=== PATIENT | male | born 1970 | race African-American/Black ===

== ENCOUNTER 2017-05-21 15:49 | Emergency (ER) | payer BC, OTHER ==
[~2017-05-21] VITALS: Ht 175.3 cm; Wt 120.0 kg
[~2017-05-21 15:49] MED LIST: ERGO50000 PO; FEXO180 OR; IBUP600 PO; METO25 PO; OXYC5 PO; SERT-132 PO; SIMV80TA PO; SULF1TAB47 PO; VITA-13 PO; ZIPR1CAP27 PO
[2017-05-21 15:51] VITALS: BP 124/72; PULSE 75; RESP 17; TEMP 98.3; O2SAT 95
--- NOTE | 2017-05-21 15:56 | PD ---
Physical Exam Time Seen by Provider: 15:54 Narrative 47-year-old male presents with complaint of constant left-sided chest pain that worsens with breathing since this morning. Denies shortness of breath. Reports her palpitations. Takes aspirin daily. Denies history of MA. Patient seen in triage. Vital signs reviewed. Patient awaiting bed placement. Data Data Last Documented VS Vital Signs Date Time Temp Pulse Resp B/P (MAP) Pulse Ox O2 Delivery O2 Flow Rate FiO2 05/21/17 15:51 98.3 75 17 124/72 (89) 95 Room Air MDM Supervised Visit with SUZY: Kirsty Deshpande May 21, 2017 15:55
[2017-05-21] MEDS ORDERED: SODIUM CHLORIDE 0.9% FLUSH 10 ML FLUSH IVF PRN (16:00)
[2017-05-21 16:14] VITALS: BP 129/80; PULSE 82; RESP 18; O2SAT 96
--- NOTE | 2017-05-21 16:29 | RADRPT ---
EXAM DATE/TIME: 05/21/2017 16:02 [facility] COMPARISON: No previous studies available for comparison. INDICATIONS : Chest pain MEDICAL HISTORY : Cardiovascular disease. SURGICAL HISTORY : None. ENCOUNTER: Initial ACUITY: 1 day PAIN SCORE: 6/10 LOCATION: chest FINDINGS: A single view of the chest demonstrates the lungs to be symmetrically aerated without evidence of mas s, infiltrate or effusion. The cardiomediastinal contours are unremarkable. Osseous structures are intact. CONCLUSION: 1. No acute cardiopulmonary findings. Sukhdeep Pugh MD on May 21, 2017 at 16:21 Board Certified Radiologist. This report was verified electronically.
[2017-05-21] MEDS ORDERED: ASPIRIN 81 MG CHEW TAB CHEW ONE (16:30)
[2017-05-21] MEDS ORDERED: ASPI81TA81 PO (16:34)
[2017-05-21] MEDS ORDERED: MELAPOW2 PO (16:34)
[2017-05-21] MEDS ORDERED: ZOCO80TA PO (16:34)
[2017-05-21] MEDS ORDERED: METF500T PO (16:34)
[2017-05-21] MEDS ORDERED: ZIPR1CAP12 PO (16:34)
[2017-05-21] MEDS ORDERED: MIRT30TA PO (16:34)
[2017-05-21] MEDS ORDERED: METO50TA PO (16:34)
[2017-05-21] MEDS ORDERED: HALO5TAB PO (16:34)
[2017-05-21] MEDS ORDERED: VITA100T65 PO (16:34)
[2017-05-21 17:03] LABS: BASOPHIL # 0.1 TH/MM3 (0-0.2); BASOPHIL % 0.6 % (0.0-2.0); EOSINOPHIL # 0.1 TH/MM3 (0-0.4); EOSINOPHIL % 0.8 % (0.0-4.0); HEMATOCRIT 45.7 % (39.0-51.0); HEMO FLAGS DIFF FINAL; LYMPH % 13.7 % (9.0-44.0); LYMPHOCYTE # 1.8 TH/MM3 (1.0-4.8); MEAN CELL VOLUME 88.2 FL (80.0-100.0); MEAN CORPUSCULAR HEMOGLOBIN 29.9 PG (27.0-34.0); MONO % 9.4 % (0.0-8.0); NEUT % 75.5 % (16.0-70.0); PLATELET COUNT 351 TH/MM3 (150-450); RED BLOOD COUNT 5.18 MIL/MM3 (4.50-5.90); RED CELL DISTRIBUTION WIDTH 13.7 % (11.6-17.2); WHITE BLOOD COUNT 13.3 TH/MM3 (4.0-11.0)
[2017-05-21 17:23] LABS: APTT (PATIENT) 23.3 SEC (24.3-30.1); BLOOD UREA NITROGEN 11 MG/DL (7-18); CHLORIDE 106 MEQ/L (98-107); CREATINE KINASE 101 U/L (39-308); GLOMERULAR FILTRATION RATE 88 ML/MIN (>89); MAGNESIUM 2.2 MG/DL (1.5-2.5); PROTHROMBIN TIME - PATIENT 11.1 SEC (9.8-11.6); SODIUM (NA) 138 MEQ/L (136-145)
[2017-05-21 17:24] LABS: ANION GAP 6 MEQ/L (5-15); BICARBONATE 25.6 MEQ/L (21.0-32.0); POTASSIUM 4.2 MEQ/L (3.5-5.1)
[2017-05-21 17:36] LABS: CKMB LESS THAN 0.5 NG/ML (0.5-3.6)
[2017-05-21 18:09] VITALS: BP 132/82; PULSE 76; RESP 18; O2SAT 95
--- NOTE | 2017-05-21 18:33 | PD ---
HPI Chief Complaint: Cardiac Complaint Time Seen by Provider: 16:02 Travel History International Travel<30 days: No Contact w/Intl Traveler<30days: No Traveled to known affect area: No History of Present Illness HPI 47-year-old male came to the emergency room with history of left-sided chest pain radiating across his entire chest on and off since 8 AM. Pain is pleuritic in nature. Patient has had multiple times pain in the past. He has had cardiac workup few years ago. No history of shortness of breath. No history of dizziness or syncopal episode. No history of diaphoresis. Vital signs are stable. The pain did not go away and hence he decided to come in and be checked. No recent long distance travel or procedures. Other has history of DVT when she was much younger. Vital signs are stable. [facility] Past Medical History Narrative Medical List of his past medical, surgical, social and family history is reviewed from the nursing note. Cardiovascular Problems: Yes High Cholesterol: Yes Hypertension: Yes ( ) Psychiatric: Yes (HISTORY OF PSYCHOSIS IN 2006. ADMITTED TO [facility]) Sleep Apnea: Yes (WEARS CPAP) Tetanus Vaccination: < 5 Years Past Surgical History Abdominal Surgery: Yes (SPLENECTOMY AGE 5- BOWEL OBSTRUCTION) Other Surgery: Yes (RECTAL CA SURGERY) Social History Alcohol Use: No Tobacco Use: No Substance Use: No Allergies-Medications (Allergen,Severity, Reaction): Coded Allergies: house dust (Unverified Allergy, Severe, 03/24/17) droperidol (Unverified Allergy, Mild, SKIN CRAWLING, 03/24/17) Comments List of his allergies reviewed from the nursing note. Reported Meds & Prescriptions Reported Meds & Active Scripts Active Reported Metformin (Metformin HCl) 500 Mg Tab 500 Mg PO BIDPC Aspir-81 (Aspirin) 81 Mg Tabdr 81 Mg PO DAILY Zocor (Simvastatin) 80 Mg Tab 80 Mg PO DAILY Vitamin E 100 Unit Tab 1,000 Units PO DAILY Ziprasidone 80 Mg Cap 80 Mg PO BID Haloperidol 5 Mg Tab 5 Mg PO Q8HR Mirtazapine 30 Mg Tab 30 Mg PO HS Metoprolol Tartrate 50 Mg Tab 50 Mg PO BID Melatonin (Melatonin (Bulk)) 100 % Pow 5 Mg PO DAILY Narrative Medication List of his home medications reviewed from the nursing note. Review of Systems Except as stated in HPI: all other systems reviewed are Neg Cardiovascular: Positive: Chest Pain or Discomfort Physical Exam Narrative GENERAL: Awake, alert, obese, moderate distress SKIN: Focused skin assessment warm/dry. HEAD: Atraumatic. Normocephalic. EYES: Pupils equal and round. No scleral icterus. No injection or drainage. ENT: No nasal bleeding or discharge. Mucous membranes pink and moist. NECK: Trachea midline. No JVD. CARDIOVASCULAR: Regular rate and rhythm. No murmur appreciated. RESPIRATORY: No accessory muscle use. Clear to auscultation. Breath sounds equal bilaterally. GASTROINTESTINAL: Abdomen soft, non-tender, nondistended. Hepatic and splenic margins not palpable. MUSCULOSKELETAL: No obvious deformities. No clubbing. No cyanosis. No edema. NEUROLOGICAL: Awake and alert. No obvious cranial nerve deficits. Motor grossly within normal limits. Normal speech. PSYCHIATRIC: Appropriate mood and affect; insight and judgment normal. Data Data Last Documented VS Vital Signs Date Time Temp Pulse Resp B/P (MAP) Pulse Ox O2 Delivery O2 Flow Rate FiO2 05/21/17 21:49 05/21/17 19:35 83 16 98 Room Air 05/21/17 15:51 98.3 Orders Orders Electrocardiogram (05/21/17 15:56) Basic Metabolic Panel (Bmp) (05/21/17 15:56) Ckmb (Isoenzyme) Profile (05/21/17 15:56) Complete Blood Count With Diff (05/21/17 15:56) Magnesium (Mg) (05/21/17 15:56) Prothrombin Time / Inr (Pt) (05/21/17 15:56) Act Partial Throm Time (Ptt) (05/21/17 15:56) Troponin I (05/21/17 15:56) Chest, Single Ap (05/21/17 15:56) Ecg Monitoring (05/21/17 15:56) Iv Access Insert/Monitor (05/21/17 15:56) Oximetry (05/21/17 15:56) Oxygen Administration (05/21/17 15:56) Sodium Chloride 0.9% Flush (Ns Flush) (05/21/17 16:00) Aspirin Chew (Aspirin Chew) (05/21/17 16:30) CKMB (05/21/17 16:47) CKMB% (05/21/17 16:47) D-Dimer (05/21/17 17:50) Ct Pulmonary Angiogram (05/21/17 ) Iohexol 350 Inj (Omnipaque 350 Inj) (05/21/17 20:28) Ed Discharge Order (05/21/17 21:42) Labs Laboratory Tests Test 05/21/17 16:47 White Blood Count 13.3 TH/MM3 Red Blood Count 5.18 MIL/MM3 Hemoglobin 15.5 GM/DL Hematocrit 45.7 % Mean Corpuscular Volume 88.2 FL Mean Corpuscular Hemoglobin 29.9 PG Mean Corpuscular Hemoglobin Concent 34.0 % Red Cell Distribution Width 13.7 % Platelet Count 351 TH/MM3 Mean Platelet Volume 8.1 FL Neutrophils (%) (Auto) 75.5 % Lymphocytes (%) (Auto) 13.7 % Monocytes (%) (Auto) 9.4 % Eosinophils (%) (Auto) 0.8 % Basophils (%) (Auto) 0.6 % Neutrophils # (Auto) 10.0 TH/MM3 Lymphocytes # (Auto) 1.8 TH/MM3 Monocytes # (Auto) 1.2 TH/MM3 Eosinophils # (Auto) 0.1 TH/MM3 Basophils # (Auto) 0.1 TH/MM3 CBC Comment DIFF FINAL Differential Comment Prothrombin Time 11.1 SEC Prothromb Time International Ratio 1.0 RATIO Activated Partial Thromboplast Time 23.3 SEC D-Dimer Quantitative (PE/DVT) 2.98 MG/L FEU Blood Urea Nitrogen 11 MG/DL Creatinine 1.08 MG/DL Random Glucose 108 MG/DL Calcium Level 8.6 MG/DL Magnesium Level 2.2 MG/DL Sodium Level 138 MEQ/L Potassium Level 4.2 MEQ/L Chloride Level 106 MEQ/L Carbon Dioxide Level 25.6 MEQ/L Anion Gap 6 MEQ/L Estimat Glomerular Filtration Rate 88 ML/MIN Total Creatine Kinase 101 U/L Creatine Kinase MB LESS THAN 0.5 NG/ML Troponin I LESS THAN 0.02 NG/ML MDM Medical Decision Making Medical Screen Exam Complete: Yes Emergency Medical Condition: Yes Medical Record Reviewed: Yes Interpretation(s) Twelve-lead EKG was reviewed by me. Normal sinus rhythm, normal axis, diffuse ST elevation versus TN depression. Heart rate of 77 bpm. Differential Diagnosis ACS, non-STEMI, PE Narrative Course 6:50 PM blood test results are back. D-dimer is significantly elevated. I have ordered a CT pulmonary angiogram for this patient. Case will be signed over to the oncoming ER physician. I did give him 2 baby aspirin's in the meanwhile. Procedures EKG Prior to Arrival: Odette Crouch MD May 21, 2017 18:33
--- NOTE | 2017-05-21 18:44 | EKG ---
Date Performed: 05/21/2017 Time Performed: 16:09:18 PTAGE: 47 years EKG: Sinus rhythm ST ELEVATION CONSISTENT WITH INJURY, PERICARDITIS, OR EARLY REPOLARIZATION NONSPECIFIC ST & T-WAVE A BNORMALITY ABNORMAL ECG NO PREVIOUS TRACING DOCTOR: Pedro Moise Interpretating Date/Time 05/21/2017 18:42:21
[2017-05-21 19:35] VITALS: BP 130/80; PULSE 83; RESP 16; O2SAT 98
[2017-05-21] MEDS ORDERED: IOHEXOL 350 MG/ML 10 ML VIAL (for RAD DIAG) IVCONTRAST ONE (20:28)
--- NOTE | 2017-05-21 20:49 | RADRPT ---
EXAM DATE/TIME: 05/21/2017 20:18 [facility] COMPARISON: No previous studies available for comparison. INDICATIONS : Chest pain IV CONTRAST: 75 cc Omnipaque 350 (iohexol) IV RADIATION DOSE: 19.48 CTDIvol (mGy) MEDICAL HISTORY : Carcinoma, rectal. Hypertension. SURGICAL HISTORY : None. ENCOUNTER: Initial ACUITY: 1 day PAIN SCALE: 7/10 LOCATION: Bilateral upper chest TECHNIQUE: Volumetric scanning of the chest was performed using a pulmonary embolism protocol MIP images were re constructed. Using automated exposure control and adjustment of the mA and/or kV according to patien t size, radiation dose was kept as low as reasonably achievable to obtain optimal diagnostic quality images. DICOM format image data is available electronically for review and comparison. Follow-up recommendations for detected pulmonary nodules are based at a minimum on nodule size and pa tient risk factors according to Fleischner Society Guidelines. FINDINGS: PULMONARY ARTERIES: No filling defects are seen in the pulmonary arteries through the segmental level. LUNGS: There is no consolidation or pneumothorax . No concerning pulmonary nodule is visualized. PLEURAE: There is no pleural thickening or pleural effusion. MEDIASTINUM: There is good visualization of the great vessels of the middle mediastinum. No evidence of mediastin al or hilar adenopathy/mass. MUSCULOSKELETAL: Within normal limits for patient age. MISCELLANEOUS: The visualized upper abdominal organs demonstrate no acute abnormality. CONCLUSION: 1. Negative for pulmonary embolus. Dependent atelectasis in both lungs. Mynor Tracey MD on May 21, 2017 at 20:46 Board Certified Radiologist. This report was verified electronically.
--- NOTE | 2017-05-21 21:13 | PD ---
Physical Exam Narrative Patient was seen by ED physician and signed out to me. Patient has across anterior chest wall pain with deep breathing. Patient states that he does not have any pain without deep breathing. Patient denies any coughing congestion. Patient has history of costochondritis with recurrent chest pain in the past. Patient states that he had stress test done twice in the past and was normal. Data Data Last Documented VS Vital Signs Date Time Temp Pulse Resp B/P (MAP) Pulse Ox O2 Delivery O2 Flow Rate FiO2 05/21/17 19:35 83 16 130/80 (97) 98 Room Air 05/21/17 15:51 98.3 Orders Orders Electrocardiogram (05/21/17 15:56) Basic Metabolic Panel (Bmp) (05/21/17 15:56) Ckmb (Isoenzyme) Profile (05/21/17 15:56) Complete Blood Count With Diff (05/21/17 15:56) Magnesium (Mg) (05/21/17 15:56) Prothrombin Time / Inr (Pt) (05/21/17 15:56) Act Partial Throm Time (Ptt) (05/21/17 15:56) Troponin I (05/21/17 15:56) Chest, Single Ap (05/21/17 15:56) Ecg Monitoring (05/21/17 15:56) Iv Access Insert/Monitor (05/21/17 15:56) Oximetry (05/21/17 15:56) Oxygen Administration (05/21/17 15:56) Sodium Chloride 0.9% Flush (Ns Flush) (05/21/17 16:00) Aspirin Chew (Aspirin Chew) (05/21/17 16:30) CKMB (05/21/17 16:47) CKMB% (05/21/17 16:47) D-Dimer (05/21/17 17:50) Ct Pulmonary Angiogram (05/21/17 ) Iohexol 350 Inj (Omnipaque 350 Inj) (05/21/17 20:28) Labs Laboratory Tests Test 05/21/17 16:47 White Blood Count 13.3 TH/MM3 Red Blood Count 5.18 MIL/MM3 Hemoglobin 15.5 GM/DL Hematocrit 45.7 % Mean Corpuscular Volume 88.2 FL Mean Corpuscular Hemoglobin 29.9 PG Mean Corpuscular Hemoglobin Concent 34.0 % Red Cell Distribution Width 13.7 % Platelet Count 351 TH/MM3 Mean Platelet Volume 8.1 FL Neutrophils (%) (Auto) 75.5 % Lymphocytes (%) (Auto) 13.7 % Monocytes (%) (Auto) 9.4 % Eosinophils (%) (Auto) 0.8 % Basophils (%) (Auto) 0.6 % Neutrophils # (Auto) 10.0 TH/MM3 Lymphocytes # (Auto) 1.8 TH/MM3 Monocytes # (Auto) 1.2 TH/MM3 Eosinophils # (Auto) 0.1 TH/MM3 Basophils # (Auto) 0.1 TH/MM3 CBC Comment DIFF FINAL Differential Comment Prothrombin Time 11.1 SEC Prothromb Time International Ratio 1.0 RATIO Activated Partial Thromboplast Time 23.3 SEC D-Dimer Quantitative (PE/DVT) 2.98 MG/L FEU Blood Urea Nitrogen 11 MG/DL Creatinine 1.08 MG/DL Random Glucose 108 MG/DL Calcium Level 8.6 MG/DL Magnesium Level 2.2 MG/DL Sodium Level 138 MEQ/L Potassium Level 4.2 MEQ/L Chloride Level 106 MEQ/L Carbon Dioxide Level 25.6 MEQ/L Anion Gap 6 MEQ/L Estimat Glomerular Filtration Rate 88 ML/MIN Total Creatine Kinase 101 U/L Creatine Kinase MB LESS THAN 0.5 NG/ML Troponin I LESS THAN 0.02 NG/ML [facility] Supervised Visit with SUZY: No Interpretation(s) Last Impressions Chest X-Ray 05/21/17 1556 Signed Impressions: Service Date/Time: May 16:02 - CONCLUSION: 1. No acute cardiopulmonary findings. Sukhdeep Pugh MD 21:[address] pulmonary angiogram shows negative for PE. Dependent atelectasis in both lungs. CBC WBC 13.3. 73 neutrophil. BMP within normal limit. Cardiac enzymes are normal. D-dimer 2.98. Narrative Course Patient was seen by ED physician and signed out to me. Diagnosis Primary Impression: Atypical chest pain Additional Impression: Pleurisy Patient Instructions: General Instructions Additional Instruction: Tylenol Advil for pain. Follow-up with personal physician. Return if increasing chest pain shortness of breath. Med/Other Pt SpecificInfo: No Change to Meds Disposition: 01 DISCHARGE HOME Condition: Stable Donald Davalos MD May 21, 2017 21:13
== END 2017-05-21 22:15 | disposition home or self-care (01) ==
LOC: NEPC 15:49
DX: R07.89 Other chest pain (principal); R09.1 Pleurisy; D68.8 Other specified coagulation defects; D72.829 Elevated white blood cell count, unspecified; R94.31 Abnormal electrocardiogram [ECG] [EKG]; I10 Essential (primary) hypertension; E78.00 Pure hypercholesterolemia, unspecified; G47.30 Sleep apnea, unspecified; Z79.899 Other long term (current) drug therapy; Z86.79 Personal history of other diseases of the circulatory system; Z86.59 Personal history of other mental and behavioral disorders
CPT/HCPCS: 71010; 71275; 80048; 82550; 82552; 83735; 84484; 85025; 85379; 85610; 85730; 93005; 99285; Q9967

== ENCOUNTER 2017-07-30 11:08 | Emergency (ER) | payer OTHER ==
[~2017-07-30 11:08] MED LIST changes: +ASPI81TA81 PO; -ERGO50000 PO; -FEXO180 OR; +HALO5TAB PO; -IBUP600 PO; +MELAPOW2 PO; +METF500T PO; -METO25 PO; +METO50TA PO; +MIRT30TA PO; -OXYC5 PO; -SERT-132 PO; -SIMV80TA PO; -SULF1TAB47 PO; -VITA-13 PO; +VITA100T65 PO; +ZIPR1CAP12 PO; -ZIPR1CAP27 PO; +ZOCO80TA PO
[2017-07-30 11:11] VITALS: BP 135/84; PULSE 78; RESP 18; TEMP 98.6; O2SAT 94
[2017-07-30 11:24] VITALS: PULSE 76; RESP 18; O2SAT 96
--- NOTE | 2017-07-30 11:33 | PD ---
HPI Chief Complaint: Pain: Acute or Chronic Time Seen by Provider: 11:28 Travel History International Travel<30 days: No Contact w/Intl Traveler<30days: No Traveled to known affect area: No History of Present Illness HPI 47-year-old male presents to the emergency department for evaluation of right hip pain since Thursday. Patient does not recall any injury. He states the pain is a 6 out of 10, exacerbated her a 10 out of 10 with ambulation. He has had no fever or chills. Pain is along the lateral aspect of the hip and radiates to the thigh. He denies any alterations in sensation or limitations in range of motion except for the pain makes him not want to move it. He has no other symptoms to report. [facility] Past Medical History Cardiovascular Problems: Yes High Cholesterol: Yes Diabetes: Yes Patient Takes Glucophage: Yes (TOOK IT LAST NIGHT) Hypertension: Yes ( ) Psychiatric: Yes (HISTORY OF PSYCHOSIS IN 2006. ADMITTED TO [facility]) Schizophrenia: Yes Sleep Apnea: Yes (WEARS CPAP) Tetanus Vaccination: Unknown Influenza Vaccination: Yes Past Surgical History Abdominal Surgery: Yes (SPLENECTOMY AGE 5- BOWEL OBSTRUCTION) Other Surgery: Yes (RECTAL CA SURGERY) Social History Alcohol Use: No Tobacco Use: No Substance Use: No Allergies-Medications (Allergen,Severity, Reaction): Coded Allergies: house dust (Unverified Allergy, Severe, 03/24/17) droperidol (Unverified Allergy, Mild, SKIN CRAWLING, 03/24/17) Reported Meds & Prescriptions Reported Meds & Active Scripts Active Mobic (Meloxicam) 15 Mg Tab 15 Mg PO DAILY PRN 14 Days Reported Metformin (Metformin HCl) 500 Mg Tab 500 Mg PO BIDPC Aspir-81 (Aspirin) 81 Mg Tabdr 81 Mg PO DAILY Zocor (Simvastatin) 80 Mg Tab 80 Mg PO DAILY Vitamin E 100 Unit Tab 1,000 Units PO DAILY Ziprasidone 80 Mg Cap 80 Mg PO BID Haloperidol 5 Mg Tab 5 Mg PO Q8HR Mirtazapine 30 Mg Tab 30 Mg PO HS Metoprolol Tartrate 50 Mg Tab 50 Mg PO BID Melatonin (Melatonin (Bulk)) 100 % Pow 5 Mg PO DAILY Review of Systems Except as stated in HPI: all other systems reviewed are Neg Physical Exam Narrative GENERAL: Well-nourished male patient, in no acute distress. SKIN: Focused skin assessment warm/dry. HEAD: Atraumatic. Normocephalic. EYES: Pupils equal and round. No scleral icterus. No injection or drainage. ENT: No nasal bleeding or discharge. Mucous membranes pink and moist. NECK: Trachea midline. No JVD. CARDIOVASCULAR: Regular rate and rhythm. No murmur appreciated. RESPIRATORY: No accessory muscle use. Clear to auscultation. Breath sounds equal bilaterally. GASTROINTESTINAL: Abdomen soft, non-tender, nondistended. Hepatic and splenic margins not palpable. MUSCULOSKELETAL: No obvious deformities. No clubbing. No cyanosis. No edema. Tenderness elicited palpation over the right hip. There is no limitation in range of motion. Patient is full flexion, extension, abduction, and abduction both passively and actively. Distal pulses are palpable. Cap refill within normal limits. There is no shortening or rotation of the affected extremity. Patient is ambulatory. NEUROLOGICAL: Awake and alert. No obvious cranial nerve deficits. Motor grossly within normal limits. Normal speech. PSYCHIATRIC: Appropriate mood and affect; insight and judgment normal. Data Data Last Documented VS Vital Signs Date Time Temp Pulse Resp B/P (MAP) Pulse Ox O2 Delivery O2 Flow Rate FiO2 07/30/17 12:33 07/30/17 11:24 76 18 96 Room Air 07/30/17 11:11 98.6 Orders Orders Hip, Uni(Ap&Lat) W Ap Pelvis (07/30/17 ) Ketorolac Inj (Toradol Inj) (07/30/17 11:45) Ed Discharge Order (07/30/17 12:13) [facility] Medical Decision Making Medical Screen Exam Complete: Yes Emergency Medical Condition: Yes Medical Record Reviewed: Yes Differential Diagnosis Arthritic pain versus bursitis versus strain versus sciatica Narrative Course 47-year-old male presents to the emergency department for evaluation right hip pain with no preceding injury. Physical exam is unremarkable. X-ray imaging is also unremarkable. Patient is treated for pain. He is encouraged to follow- up with primary care provider and return immediately with any acute worsening of symptoms. Patient is ambulatory out of the emergency department. He agrees with this plan of care. Diagnosis Primary Impression: Hip pain, right Referrals: Orthopedist Primary Care Physician Patient Instructions: General Instructions, Hip Pain (ED) Additional Instructions: Follow-up with a primary care provider Seek orthopedic evaluation Ice and/or warm moist heat may help to alleviate symptoms Return immediately to the emergency department with any acute worsening of symptoms Med/Other Pt SpecificInfo: Prescription(s) given Scripts Meloxicam (Mobic) 15 Mg Tab 15 MG PO DAILY Y for PAIN SCALE 1 TO 10 for 14 Days, #14 TAB 0 Refills Prov: Liliya Wylie 07/30/17 Disposition: 01 DISCHARGE HOME Condition: Stable Liliya Wylie Jul 30, 2017 11:33
[2017-07-30] MEDS ORDERED: KETOROLAC TROMETHAMINE 60 MG/2 ML (IM) VIAL IM ONE (11:45)
--- NOTE | 2017-07-30 12:04 | RADRPT ---
EXAM DATE/TIME: 07/30/2017 11:49 [facility] COMPARISON: No previous studies available for comparison. INDICATIONS : Right hip pain. MEDICAL HISTORY : Hypertension. Diabetes mellitus type II. SURGICAL HISTORY : None. ENCOUNTER: Initial ACUITY: 4 - 6 days PAIN SCORE: 9/10 LOCATION: Right lateral hip. FINDINGS: Examination of the right hip was performed with AP Pelvis. The primary and secondary trabecular tabatha kvng of the femoral neck is intact. The hip joint is of normal width without significant sclerosis or bony hypertrophy. The acetabulum is grossly intact. CONCLUSION: Unremarkable examination of the right hip. Dominic Meza MD on July 30, 2017 at 12:01 Board Certified Radiologist. This report was verified electronically.
[2017-07-30] MEDS ORDERED: MOBI15TA PO (12:16)
== END 2017-07-30 12:34 | disposition home or self-care (01) ==
LOC: NEPD 11:08
DX: M25.551 Pain in right hip (principal); M79.651 Pain in right thigh; E11.9 Type 2 diabetes mellitus without complications; I10 Essential (primary) hypertension; E78.00 Pure hypercholesterolemia, unspecified; F20.9 Schizophrenia, unspecified; G47.30 Sleep apnea, unspecified; Z79.84 Long term (current) use of oral hypoglycemic drugs; Z86.79 Personal history of other diseases of the circulatory system
CPT/HCPCS: 73502; 96372; 99284; J1885